=== PATIENT | male | born 1975 | race Caucasian/White ===

== ENCOUNTER 2024-01-26 18:36 | Emergency (ER) | payer SELFPAY ==
[~2024-01-26] VITALS: Ht 172.7 cm; Wt 88.0 kg
[2024-01-26 18:49] VITALS: BP 121/68; PULSE 86; RESP 16; TEMP 97.8; O2SAT 99
== END 2024-01-26 19:10 | disposition left against medical advice (07) ==
LOC: ER 18:36
DX: M79.89 Other specified soft tissue disorders (principal); Z53.21 Procedure and treatment not carried out due to patient leaving prior to being seen by health care provider